=== PATIENT | female | born 1970 | race Caucasian/White ===

== ENCOUNTER 2023-11-15 11:39 | Emergency (ER) | payer OTHER ==
[2023-11-15 12:48] LABS: #Basophils Less than 0.03 10x3/uL (0.0-0.2); %Basophils 0.2 % (0.0-1.0); %Eosinophils 0.4 % (0.0-10.0); %Lymphocytes 15.5 % (21.0-51.0); %Monocytes 4.6 % (0.0-10.0); Hematocrit 45.7 % (36.0-47.0); Hemoglobin 15.5 g/dL (12.0-16.0); Mean Corpuscular HGB CONC 33.9 g/dL (32.0-36.0); Mean Corpuscular Hemoglobin 29.2 pg (27.0-31.0); Mean Corpuscular Volume 86.1 fL (78.0-98.0); Platelet Count 252 10x3/uL (130-400); Red Blood Cell (RBC) Count 5.31 mill/uL (4.20-5.40)
[2023-11-15 13:11] LABS: ALT (SGPT) 29 U/L (8-55); AST (SGOT) 23 U/L (5-34); Alkaline Phosphatase 89 U/L (40-110); Anion Gap 15 mmol/L (10-20); BUN (Urea Nitrogen) 10 mg/dL (9.8-20.1); Bilirubin, Total 0.5 mg/dL (0.2-1.2); Calc. Creatinine Clearance 0 mL/min (70-130); Calcium 9.3 mg/dL (7.8-10.44); Carbon Dioxide 26 mmol/L (22-29); Chloride 105 mmol/L (98-107); Estimated GFR 72; Globulin 3.6 g/dL (2.4-3.5); Glucose 101 mg/dL (70-105); Lipase 13 U/L (8-78); Potassium 3.7 mmol/L (3.5-5.1); Protein, Total 7.6 g/dL (6.0-8.3); Sodium 142 mmol/L (136-145)
[2023-11-15] MEDS ORDERED: Morphine 4 MG/ML VIAL ONE ×2 (14:36→14:47)
[2023-11-15] MEDS ORDERED: Ondansetron PF 4 MG/2 ML Vial ONE (14:36)
[2023-11-15 17:01] LABS: Bilirubin Negative (Negative); Blood, Urine Negative (Negative); CAUTI Indications for Culture Acute Hematuria; Clarity Clear (Clear); Glucose, Urine (Dipstick) Normal (Negative); Ketone, Urine 10 mg/dL (Negative); Leukocyte 250 Leu/uL (Negative); Nitrite Negative (Negative); Protein, Urine (Dipstick) 20 mg/dL (Neg-Trace); RBC/HPF 0-3 HPF (0-3); Specific Gravity, Urine 1.027 (1.002-1.036)
[2023-11-15 17:02] LABS: Bacteria/HPF 1+ HPF (None Seen)
[2023-11-15 17:03] LABS: Urine Culture Reflex Yes Yes
== END 2023-11-15 17:22 | disposition home or self-care (01) ==
LOC: ERS 11:39
DX: K80.50 Calculus of bile duct without cholangitis or cholecystitis without obstruction (principal); N39.0 Urinary tract infection, site not specified
CPT/HCPCS: 36415; 76705; 80053; 81001; 83690; 85025; 87086; 96374; 96375; J2270; J2405

== ENCOUNTER → 2023-11-17 | Day surgery (SDC) | payer OTHER ==
[~2023-11-17] MED LIST: Acetaminophen/Codeine 30-300mg Tablet PO PRN; Bupivacaine 0.25% HCL 30 ML VIAL ONE; Clindamycin/D5W 900 mg/50 ml Premix Bag ONE; Dexamethasone 4 mg/ml Vial ONE; EPINEPHrine 1 MG/ML VIAL ONE; HYDROmorphone 2 MG/ML VIAL SLOW IVP PRN; Ketorolac Tromethamine 30 MG (1 mL) VIAL ONE; Lidocaine 1% PF 5 ML VIAL ONE; Meperidine HCl/PF 25 MG (1 mL) VIAL ONE; Ondansetron HCl/PF 4 MG/2 ML Vial IVP PRN; Ondansetron PF 4 MG/2 ML Vial ONE; PROPOFOL 20 ML ONE; Promethazine HCl 25 MG/ML VIAL IM PRN; Rocuronium Bromide 10 MG/ML (10ML VIAL) ONE; SUGAMMADEX SODIUM 200 MG/2 ML VIAL ONE; fentaNYL PF 100 MCG/2 ML SYRINGE ONE
[2023-11-17 07:30] LABS: #Basophils Less than 0.03 10x3/uL (0.0-0.2); %Basophils 0.2 % (0.0-1.0); %Eosinophils 0.5 % (0.0-10.0); %Lymphocytes 20.9 % (21.0-51.0); %Monocytes 5.9 % (0.0-10.0); %Neutrophils 72.2 % (42.0-75.0); Hemoglobin 15.5 g/dL (12.0-16.0); Mean Corpuscular HGB CONC 33.7 g/dL (32.0-36.0); Mean Corpuscular Hemoglobin 29.9 pg (27.0-31.0); Mean Corpuscular Volume 88.6 fL (78.0-98.0); Mean Platelet Volume 9.7 fL (7.4-10.4); Platelet Count 218 10x3/uL (130-400); RBC Distribution Width 13.8 % (11.5-14.5); Red Blood Cell (RBC) Count 5.19 mill/uL (4.20-5.40)
[2023-11-17 07:43] LABS: ALT (SGPT) 28 U/L (8-55); AST (SGOT) 26 U/L (5-34); Albumin 3.8 g/dL (3.5-5.0); Alkaline Phosphatase 82 U/L (40-110); Anion Gap 16 mmol/L (10-20); BUN (Urea Nitrogen) 12 mg/dL (9.8-20.1); Bilirubin, Total 0.9 mg/dL (0.2-1.2); Calc. Creatinine Clearance 0 mL/min (70-130); Calcium 9.8 mg/dL (7.8-10.44); Carbon Dioxide 26 mmol/L (22-29); Chloride 100 mmol/L (98-107); Estimated GFR 69; Globulin 3.6 g/dL (2.4-3.5); Glucose 89 mg/dL (70-105); Lipase 16 U/L (8-78); Potassium 3.8 mmol/L (3.5-5.1); Protein, Total 7.4 g/dL (6.0-8.3); Sodium 138 mmol/L (136-145)
[2023-11-17 07:49] LABS: Troponin I Less than 0.010 ng/mL (< 0.028)
[2023-11-17 08:54] LABS: Bacteria/HPF None Seen HPF (None Seen); Bilirubin Negative (Negative); Blood, Urine Negative (Negative); CAUTI Indications for Culture Fever or rigors; Clarity Clear (Clear); Glucose, Urine (Dipstick) Normal (Negative); Ketone, Urine 60 mg/dL (Negative); Leukocyte 250 Leu/uL (Negative); Nitrite Negative (Negative); Protein, Urine (Dipstick) 10 mg/dL (Neg-Trace); RBC/HPF 0-3 HPF (0-3); Specific Gravity, Urine 1.024 (1.002-1.036); Squamous Epithelial 0-3 HPF (0-3); Urobilinogen Normal mg/dL (Less than 2); pH, Urine 5.5 (5.0-9.0)
[2023-11-17 09:04] LABS: Urine Culture Reflex No No
== END | disposition home or self-care (01) ==
LOC: ERS 06:52 → SDC 11:18
PROVIDERS: ATTEND Student in an Organized Health Care Education/Training Program
PROC: 0FT44ZZ Resection of Gallbladder, Percutaneous Endoscopic Approach (ICD-10-PCS; principal; 2023-11-17)
DX: K80.12 Calculus of gallbladder with acute and chronic cholecystitis without obstruction (principal); Z88.1 Allergy status to other antibiotic agents; Z88.2 Allergy status to sulfonamides; Z88.8 Allergy status to other drugs, medicaments and biological substances; Z90.710 Acquired absence of both cervix and uterus
CPT/HCPCS: 76705; 80053; 81001; 83690; 84484; 85025; 88304; 93005; 96374; C1889; J0171; J0665; J1100; J1885; J2175; J2405; J2704; J3490

== ENCOUNTER 2023-12-09 07:59 | Outpatient (CLI) | payer OTHER ==
[~2023-12-09 07:59] MED LIST changes: -Acetaminophen/Codeine 30-300mg Tablet PO PRN; -Bupivacaine 0.25% HCL 30 ML VIAL ONE; -Clindamycin/D5W 900 mg/50 ml Premix Bag ONE; -Dexamethasone 4 mg/ml Vial ONE; -EPINEPHrine 1 MG/ML VIAL ONE; -Ketorolac Tromethamine 30 MG (1 mL) VIAL ONE; -Lidocaine 1% PF 5 ML VIAL ONE; -Meperidine HCl/PF 25 MG (1 mL) VIAL ONE; -Ondansetron PF 4 MG/2 ML Vial ONE; -PROPOFOL 20 ML ONE; -Rocuronium Bromide 10 MG/ML (10ML VIAL) ONE; -SUGAMMADEX SODIUM 200 MG/2 ML VIAL ONE; -fentaNYL PF 100 MCG/2 ML SYRINGE ONE
== END 2023-12-09 08:00 | disposition home or self-care (01) ==
LOC: BICMAMMO 07:59
PROVIDERS: ATTEND Family Medicine
DX: Z12.31 Encounter for screening mammogram for malignant neoplasm of breast (principal)
CPT/HCPCS: 77063; 77067